=== PATIENT | male | born 1990 | race African-American/Black ===

== ENCOUNTER 2016-09-06 18:51 | Emergency (ER) | payer SELFPAY | END 2016-09-06 19:58 | disposition left against medical advice (07) | LOC: D.ER 18:51 | DX: R11.10 Vomiting, unspecified (principal) ==

== ENCOUNTER 2018-03-03 18:03 | Emergency (ER) | payer SELFPAY ==
[~2018-03-03] VITALS: Ht 180.3 cm; Wt 65.9 kg
[2018-03-03 18:18] VITALS: Ht 180.3 cm; Wt 65.9 kg
[2018-03-03] MEDS ORDERED: TYLENOL W/CODEI1 TAB PO (19:35)
[2018-03-03] MEDS ORDERED: KEFLEX500 MG PO (19:35)
[2018-03-03 19:53] VITALS: BP 140/88
== END 2018-03-03 19:53 | disposition home or self-care (01) ==
LOC: D.ER 18:03
DX: S61.411A Laceration without foreign body of right hand, initial encounter (principal); S01.81XA Laceration without foreign body of other part of head, initial encounter; Y04.2XXA Assault by strike against or bumped into by another person, initial encounter; Y93.89 Activity, other specified; Y92.89 Other specified places as the place of occurrence of the external cause; F17.200 Nicotine dependence, unspecified, uncomplicated